=== PATIENT | male | born 1990 | race Caucasian/White ===

== ENCOUNTER 2019-02-13 19:35 | Emergency (ER) | payer SELFPAY ==
[~2019-02-13] VITALS: Ht 167.6 cm; Wt 86.4 kg
[2019-02-13 19:59] VITALS: BP 125/61
[2019-02-13] MEDS ORDERED: PB/HYOSCY/ATR/SCOP/LIDO/MAALOX 55 ML BOTTLE PO ONE (20:30)
== END 2019-02-13 22:35 | disposition home or self-care (01) ==
LOC: EMS 19:36
DX: S27.818A Other injury of esophagus (thoracic part), initial encounter (principal); X58.XXXA Exposure to other specified factors, initial encounter; Y93.89 Activity, other specified; Y92.89 Other specified places as the place of occurrence of the external cause; Y99.8 Other external cause status
CPT/HCPCS: 70360; 70490